=== PATIENT | female | born 1975 | race Caucasian/White ===

== ENCOUNTER 2019-06-22 09:30 | Outpatient (CLI) | payer BC, SELFPAY ==
--- NOTE | ~2019-06-22 | US_ITS ---
EXAMINATION: US soft tissue head and neck DATE: 06/22/2019 10:14 INDICATION: Generalized enlarged lymph nodes. TECHNIQUE: Multiple grayscale and Doppler ultrasound images of the neck were obtained. COMPARISON: Chest CT 05/09/2019 FINDINGS: There are normal lymph nodes in the submandibular space and left lateral neck in the patien t's areas of concern. IMPRESSION: 1. No abnormal mass or lymphadenopathy in the patient's areas of concern. Reviewed, dictated and finalized at location A. [employer]
[2019-06-22 10:18] LABS: Basophils Percent Auto 0.5 % (0.2-1.2); Eosinophils Absolute Auto 0.1 K/mm3 (0-0.3); Eosinophils Percent Auto 1.7 % (0-4.4); Hematocrit 39.8 % (37.0-47.0); Hemoglobin 13.1 g/dL (12.0-15.0); Immature Granulocyte Absolute 0.02 K/mm3 (0.00-0.031); Immature Granulocyte Percent A 0.2 % (0-0.5); Lymphocytes Absolute Auto 2.12 K/mm3 (0.9-3.2); Lymphocytes Percent Auto 25.2 % (18.3-44.2); Mean Corpuscular HGB Conc 32.9 g/dl (32-36); Mean Corpuscular Hemoglobin 30.2 pg (26-34); Mean Corpuscular Volume 91.7 fl (80-100); Mean Platelet Volume 11.3 fl (7.4-10.4); Monocytes Absolute Auto 0.9 K/mm3 (0.1-0.6); Monocytes Percent Auto 10.8 % (2.6-8.5); Neutrophils Absolute Auto 5.2 K/mm3 (1.3-6.7); Neutrophils Percent Auto 61.6 % (45.5-73.1); Platelet Count Result 250 k/mm3 (150-375); Red Blood Count 4.34 M/mm3 (4.2-5.4); Red Cell Distribution Width 12.7 % (11.5-14.5); White Blood Count 8.4 K/mm3 (4.5-10.0)
[2019-06-22 10:44] LABS: Blood Urea Nitrogen 12 mg/dL (7-17); Calcium 9.2 mg/dL (8.4-10.2); Carbon Dioxide 25 mmol/L (22-30); Chloride 105 mmol/L (98-107); Estimated Glomerular Filt Rate > 60; Glucose 82 mg/dL (65-105); Potassium 4.2 mmol/L (3.4-5.0); Sodium 137 mmol/L (137-145)
[2019-06-25 16:34] LABS: CMV IgM Antibody <30.00 AU/mL (<30.00)
[2019-06-25 19:38] LABS: EBV Nuclear Ab Interpretation Past; EBV Virus Capsid Ag IgM Ab <36.00 U/mL (<36.00)
[2019-06-26 08:17] LABS: CMV IgG Antibody <0.60 U/mL (<0.60)
== END 2019-06-22 09:31 | disposition home or self-care (01) ==
PROVIDERS: Visit Provider Nurse Practitioner Family
DX: R05 Cough (principal); R59.1 Generalized enlarged lymph nodes; R53.83 Other fatigue
CPT/HCPCS: 36415; 76536; 80048; 84443; 85025; 86644; 86645; 86664; 86665

== ENCOUNTER 2019-07-06 09:28 | Outpatient (CLI) | payer BC, SELFPAY ==
--- NOTE | 2019-07-07 12:05 | WPDPFTINT ---
PFT Interpretation PFT Interpretation: This PFT met all criteria for ATS standards and reproducibility FEV/FVC post bronchodilator 84% FEV1 118% and 3.11 liters FVC 108% and 3.71 liters TLC 99% and 4.94 liters RV 69% RV/TLC 24% DLCO 85% when adjusted for alveolar volume but not adjusted for hemoglobin Flow volume loops were normal Impression: Normal PFT Clinical correlation is advised.
== END 2019-07-06 09:29 | disposition home or self-care (01) ==
PROVIDERS: Visit Provider Nurse Practitioner Family
DX: R05 Cough (principal)
CPT/HCPCS: 94060; 94726; 94729

== ENCOUNTER 2019-09-16 12:32 | Outpatient (CLI) | payer BC, SELFPAY | END 2019-09-16 12:33 | disposition home or self-care (01) | PROVIDERS: PCP Family Medicine; Visit Provider Internal Medicine Critical Care Medicine | DX: R05 Cough (principal) | CPT/HCPCS: 36415; 82785; 86003 ==

== ENCOUNTER 2020-02-08 12:56 | Emergency (ER) | payer BC, SELFPAY ==
--- NOTE | ~2020-02-08 | XR_ITS ---
EXAMINATION: XR foot RT min 3V DATE: 02/08/2020 13:17 INDICATION: Right foot pain post injury TECHNIQUE: Dorsoplantar, two oblique and lateral views of the right foot were obtained. COMPARISON: None. FINDINGS: Alignment is normal. No fracture. Joint spaces are normal. Soft tissues are unremarkable. IMPRESSION: 1. Negative right foot radiographs. Reviewed, dictated and finalized at location A.
--- NOTE | 2020-02-08 13:01 | ED.LOWEXIN ---
HPI - Extremity Injury (Lower) General Chief Complaint: Extremity Injury, Lower Stated Complaint: rt ankle injury Time Seen by Provider: 02/08/20 13:02 Source: patient and RN notes reviewed History of Present Illness HPI Narrative: Patient is a 44-year-old female who presents the urgent care with complaints of right foot pain. Patient states that she felt that pop when she stepped into her recess to fireplace this morning at around 11 AM. Patient states that she has been resting with ice and elevation but denies of any use of [id number] medication. Patient is ambulating on the foot. Denies of any other injuries. No other acute complaints. No acute distress noted. Patient aware of the plan of care. Some parts of this dictation were generated by voice recognition software and may contain typographical and/or grammatical inaccuracies. Related Data Allergies Allergy/AdvReac Type Severity Reaction Status Date / Time hydrocodone Allergy Unknown Unknown Verified 12/07/19 13:48 Review of Systems Review of Systems: Narrative: CONSTITUTIONAL: Denies fever, chills, or sweats. EYES: Denies visual changes, redness, or discharge. ENT: Denies rhinorrhea, congestion, sore throat, or otalgia. CARDIOVASCULAR: Denies chest pain, palpitations, or edema. RESPIRATORY: Denies cough or dyspnea. GASTROINTESTINAL: Denies abdominal pain, nausea, vomiting, or diarrhea. GENITOURINARY: Denies dysuria or hematuria. SKIN: Denies rash or itching. MUSCULOSKELETAL: Reports of right foot pain NEUROLOGIC: Denies headache, numbness, or weakness. All other systems reviewed are negative, except as documented in HPI. PMFSH Family History Family History Grandparent Family history of lung cancer Other Carcinoma of colon Social History Social History Smoking status: Former smoker Second hand tobacco smoke exposure: No Alcohol intake: never Comments At the time of my signature, I reviewed and agree with the nursing past medical, surgical, social, and family history. There is no relevant family history pertinent to the patient complaint. Exam Narrative: Exam Narrative: GENERAL: This is a well-nourished, well-developed patient, in no apparent distress. HEAD: normocephalic, atraumatic. EYES: PERRL. Sclera clear/white. Vision is grossly intact. EARS: External ears normal NOSE: External nose normal with no obvious nasal discharge, nares without redness, no rhinorrhea. THROAT: Mucous membranes moist NECK: Neck supple SKIN: warm, intact with no suspicious lesions or rash, good texture and turgor. NEURO: awake, alert, and oriented to person, place and time. There were no obvious focal neurologic abnormalities. EXTREMITIES: No obvious deformity, fracture, edema, erythema or ecchymosis noted to the right lower extremity. Mild to moderate pain to the talus region of the right foot. Positive strong right pedal pulse with capillary refill less than 2 seconds. Course Vital Signs Vital signs: Vital Signs Temperature 98.0 F 02/08/20 13:03 Pulse Rate 74 02/08/20 13:03 Respiratory Rate 12 02/08/20 13:03 Blood Pressure 118/86 02/08/20 13:03 Pulse Oximetry 99 02/08/20 13:03 Temperature 98.0 F 02/08/20 13:03 Pulse Rate 74 02/08/20 13:03 Respiratory Rate 12 02/08/20 13:03 Blood Pressure 118/86 02/08/20 13:03 Pulse Oximetry 99 02/08/20 13:03 Reviewed MDM - Extremity Injury (Lower) MDM Narrative Medical decision making narrative: Reviewed x-ray results with the patient. She is aware that x-ray was normal without any fracture or deformity. Advised the patient to continue elevation, ice, Tylenol, ibuprofen as needed. May use an Arturo wrap for support and comfort. Wear a supportive tennis shoe that is not tight around the area of pain. If you do not have any improvement of pain or continue to have inability to
[2020-02-08 13:03] VITALS: BP 118/86; PULSE 74; RESP 12; TEMP 36.7; O2SAT 99
== END 2020-02-08 13:32 | disposition home or self-care (01) ==
PROVIDERS: Emergency Provider Nurse Practitioner Family; PCP Family Medicine
DX: S93.601A Unspecified sprain of right foot, initial encounter (principal); W19.XXXA Unspecified fall, initial encounter; J45.909 Unspecified asthma, uncomplicated; Z87.891 Personal history of nicotine dependence
CPT/HCPCS: 73630; 99213; G0463

== ENCOUNTER 2020-02-09 14:16 | Outpatient (CLI) | payer BC, SELFPAY ==
--- NOTE | ~2020-02-09 | XR_ITS ---
EXAMINATION: XR ankle RT min 3V INDICATION: Right ankle pain TECHNIQUE: Three views of the right ankle are obtained. COMPARISON: Foot radiographs from yesterday FINDINGS: Bone alignment is normal. There is no fracture. There is mild soft tissue swelling of the a nkle. IMPRESSION: 1. Soft tissue swelling without acute osseous abnormality identified. Reviewed, dictated and finalized at location A.
== END 2020-02-09 14:17 ==
PROVIDERS: PCP Family Medicine; Visit Provider Podiatrist Foot & Ankle Surgery
DX: S93.401A Sprain of unspecified ligament of right ankle, initial encounter (principal); X58.XXXA Exposure to other specified factors, initial encounter; M79.89 Other specified soft tissue disorders
CPT/HCPCS: 73610

== ENCOUNTER → 2020-08-19 09:46 | Outpatient (CLI) | payer BC, SELFPAY ==
--- NOTE | ~2020-08-19 | CT_ITS ---
EXAMINATION: CT sinus wo con DATE: 08/19/2020 10:00 INDICATION: Postnasal drip TECHNIQUE: Computed tomography (CT) of the paranasal sinuses was performed without intravenous contra st. The dose-length product was 280.01 mGy-cm. Automated exposure control and iterative reconstructio n technique were employed. COMPARISON: None FINDINGS: There is mucosal thickening of the right sphenoid sinus. Remainder of the paranasal sinuses are unremarkable. Mastoids are pneumatized. Rightward nasal septal deviation. No air-fluid levels. N o mucoperiosteal reaction. IMPRESSION: 1. Right sphenoid sinusitis. Reviewed, dictated and finalized at location B.
== END ==
PROVIDERS: Visit Provider Otolaryngology
DX: R09.82 Postnasal drip (principal); J32.3 Chronic sphenoidal sinusitis
CPT/HCPCS: 70486

== ENCOUNTER 2022-08-29 05:31 | Day surgery (SDC) | payer BC, SELFPAY ==
[2022-08-16 10:03] VITALS: BMI 24.2
--- NOTE | 2022-08-28 20:24 | PM.HPGS ---
History of Present Illness History of Present Illness Consent: Risks, benefits, and alternatives have been discussed and questions answered. Patient agrees to proceed with procedure. Chief complaint: neoplasm screening Narrative: Adelaida Davis is a 47 year old female who has a fsmily hx of colon cncer--aunt age 40's, and otherrs with polyps. Review of Systems Review of Systems: All systems reviewed & are unremarkable except as noted in HPI and below PMFSH Past Medical History Medical History Anxiety BMI 24.0-24.9, adult Depression Heartburn History of deviated nasal septum Screening mammogram, encounter for Surgical History Surgical History H/O sinus surgery (11/20/20) History of appendectomy History of hysterectomy, supracervical History of laparoscopy 4x for endometriosis Hx of partial thyroidectomy 2006 lscopic supracx hyst w/RSO--endometriosis Family History Family History Grandparent Family history of lung cancer Heart disease maternal grandfather Diabetes mellitus paternal grandfather Other Carcinoma of colon maternal aunt Sibling Alcohol abuse brother Mother Osteoporosis Social History Social History Smoking status: Never smoker Second hand tobacco smoke exposure: No Alcohol intake: current Drinks per week: 1 Alcohol use details: socially Substance use: never Substance use type: does not use Lack of Transportation: No Lack of Food: Never True Current Housing: I Have Housing Concerned About Future Housing: No Difficulty Paying Gas/Electric Bills: No Difficulty Paying for Meds: No Currently Unemployed: No Education: Associate Degree Difficulty w/ Childcare or Family Care: No Living arrangements: with family Additional living arrangements comments: spouse Occupation/Education: other Additional occupation/education comments: stay at home mom Gender identity (if verbalized by the patient): Female Sexual Orientation (if Verbalized by the Patient): Straight or Heterosexual Spiritual care concerns: No Meds Home Medications and Allergies Home Medications Medication Instructions Recorded Confirmed Type bupropion HCl 300 mg 24 hr tablet, See Rx Instructions .Route 12/04/21 08/29/22 Rx extended release .COMPLEX #90 tabs Allergies Allergy/AdvReac Type Severity Reaction Status Date / Time hydrocodone Allergy Intermediate Itching Verified 08/29/22 08:11 Exam Resp: Auscultation: clear to auscultation bilaterally Cardio: Rate: regular rate Rhythm: regular rhythm GI: GI Palp: Yes Soft to palpation and No Tenderness to palpation present (GI) Assessment and Plan Assessment and plan (1) Screening for colon cancer: Code(s): Z12.11 - Encounter for screening for malignant neoplasm of colon Status: Acute Assessment and Plan: Colonoscopy with possible biopsy or polypectomy or cautery or injection of substances.
[2022-08-29 08:13] VITALS: BP 117/67; PULSE 78; RESP 18; TEMP 36.4; O2SAT 100
[2022-08-29] MEDS: LACTATED RINGERS 1,000 ML 150 ML IV CONT (08:21)
--- NOTE | 2022-08-29 09:24 | WPDANESEPPF ---
Anes - Initial Pre Proc Eval Procedure: Operation Date: 08/29/22 09:45 Proposed Procedures p Screening Colonoscopy - Ez Orr MD Date/Time: 08/29/22 09:24 Surgeon: Ez Orr MD Pre Op Diagnosis: neoplasm screening Patient Data Age: 47 Gender: F Height: 1.63 m Weight: 64.8 kg Last Vital Signs Temp 97.5 F L 08/29/22 08:13 Pulse 78 08/29/22 08:13 Resp 18 08/29/22 08:13 BP 117/67 08/29/22 08:13 Pulse Ox 100 08/29/22 08:13 O2 Del Method Room Air 08/29/22 08:13 Allergies Allergy/AdvReac Type Severity Reaction Status Date / Time hydrocodone Allergy Intermediate Itching Verified 08/29/22 08:11 Home Medications Medication Instructions Recorded Confirmed Type bupropion HCl 300 mg 24 hr tablet, See Rx Instructions .Route 12/04/21 08/29/22 Rx extended release .COMPLEX #90 tabs Patient hx anesthesia problems: none Family hx anesthesia problems: none Results Review: All pre-operative results and documents have been reviewed as part of the pre-operative evaluation. [facility] Past Medical History Medical History Anxiety BMI 24.0-24.9, adult Depression Heartburn History of deviated nasal septum Screening mammogram, encounter for Surgical History Surgical History H/O sinus surgery (11/20/20) History of appendectomy History of hysterectomy, supracervical History of laparoscopy 4x for endometriosis Hx of partial thyroidectomy 2007 lscopic supracx hyst w/RSO--endometriosis Family History Family History Grandparent Family history of lung cancer Heart disease maternal grandfather Diabetes mellitus paternal grandfather Other Carcinoma of colon maternal aunt Sibling Alcohol abuse brother Mother Osteoporosis Social History Social History Smoking status: Never smoker Second hand tobacco smoke exposure: No Alcohol intake: current Drinks per week: 1 Alcohol use details: socially Substance use: never Substance use type: does not use Lack of Transportation: No Lack of Food: Never True Current Housing: I Have Housing Concerned About Future Housing: No Difficulty Paying Gas/Electric Bills: No Difficulty Paying for Meds: No Currently Unemployed: No Education: Associate Degree Difficulty w/ Childcare or Family Care: No Living arrangements: with family Additional living arrangements comments: spouse Occupation/Education: other Additional occupation/education comments: stay at home mom Gender identity (if verbalized by the patient): Female Sexual Orientation (if Verbalized by the Patient): Straight or Heterosexual Spiritual care concerns: No Anes - Eval Final PreProcedure Day of Procedure 08/29/22 09:24 Patient weight: normal Heart: regular rate and rhythm Lungs: clear to auscultation Airway: Mallampati scale class II Neurological: alert and oriented Last oral intake: >/= 8 hours ASA classification: II Emergent: no Anesthetic plan: proceed Anesthesia type and monitoring: general GIVS and standard monitoring Results Review: All pre-operative results and documents have been reviewed as part of the pre-operative evaluation. Informed Consent: The patient's anesthetic plan and its attendant risks and benefits were discussed with the patient/family/POA. Questions were solicited and answers provided to the satisfaction of the patient/family/POA.
[2022-08-29 10:13] VITALS: BP 101/60; PULSE 71; RESP 18; O2SAT 99
[2022-08-29 10:23] VITALS: BP 101/63; PULSE 76; RESP 20; O2SAT 100
[2022-08-29 10:33] VITALS: BP 108/74; PULSE 68; RESP 20; O2SAT 100
== END 2022-08-29 10:48 | disposition home or self-care (01) ==
PROVIDERS: PCP Family Medicine; Visit Provider Internal Medicine Gastroenterology
PROC: 0DJD8ZZ Inspection of Lower Intestinal Tract, Via Natural or Artificial Opening Endoscopic (ICD-10-PCS; CPT 45378; principal; 2022-08-29 09:45)
DX: Z12.11 Encounter for screening for malignant neoplasm of colon (principal); K63.5 Polyp of colon; F41.9 Anxiety disorder, unspecified; F32.A Depression, unspecified
CPT/HCPCS: 45380; 88305; J2704; J7120